=== PATIENT | male | born 1995 | race Caucasian/White ===

== ENCOUNTER 2018-05-08 20:48 | Emergency (ER) | payer OTHER ==
[2018-05-08 21:45] VITALS: BP 127/67
[2018-05-09] MEDS ORDERED: TETRACAINE HCL 0.5% OPH SOLN 4 ML OS ONE (00:25)
[2018-05-09] MEDS ORDERED: TETRACAINE HCL 0.5% OPH SOLN 4 ML ONE (00:27)
[2018-05-09] MEDS ORDERED: ERYTHROMYCIN 0.5% OPH OINTMENT 3.5 GM (ER DISP) OS PRN (00:39)
[2018-05-09] MEDS ORDERED: HYDROCODONE/ACETAMINOPHEN 5-325 MG (6 TAB/ER DISP) PO PRN (00:40)
--- NOTE | 2018-05-09 00:44 | ER Document Report ---
Addendum entered and electronically signed by ROSALIE CAMP PA-C 05/09/18 00:50: Discharge - Discharge Clinical Impression: Foreign body in cornea, left eye, initial encounter, Corneal rust ring of left eye Condition: Good Disposition: HOME, SELF-CARE Instructions: Corneal Foreign Body with Rust ([facility]) Additional Instructions: You must call the optical technician office first thing in the morning. Be sure to let the person who answers the phone no that you were seen in the emergency department and you are referred for further treatment. Use the medication given to you in the department tonight as directed. You must have the foreign body and the rest ring removed so that she did not get any further injury to your eye Referrals: ERIC SNIDER DO [ACTIVE STAFF] - 05/09/18 Original Note: ED General - General Chief Complaint: Eye Pain Stated Complaint: LEFT EYE IRRITATION Time Seen by Provider: 05/09/18 00:13 Mode of Arrival: Ambulatory Information source: Patient TRAVEL OUTSIDE OF THE [place] IN LAST 30 DAYS: No - HPI Patient complains to provider of: Painful left eye Onset: Other - Last day and a half Onset/Duration: Sudden Quality of pain: Burning, Stabbing Severity: Severe Pain Level: 5 Associated symptoms: None Exacerbated by: Denies Relieved by: Other - KEEPING EYE CLOSED Similar symptoms previously: No Recently seen / treated by doctor: No Notes: Patient is a 22-year-old male presenting to the ED tonight with painful left eye. 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 He distinctly remembers something falling from above into his eye. He has since developed worsened pain in the left eye. He is still seeing fairly well out of the eye but is having a lot of redness and tearing. He does not wear contacts - Related Data Allergies/Adverse Reactions: No Known Allergies Allergy (Unverified 05/08/18 20:49) Past Medical History - General Information source: Patient - Social History Smoking Status: Never Smoker Chew tobacco use (# tins/day): No Frequency of alcohol use: None Drug Abuse: None Family History: Reviewed & Not Pertinent Patient has suicidal ideation: No Patient has homicidal ideation: No Renal/ Medical History: Denies: Hx Peritoneal Dialysis Review of Systems - Review of Systems Notes: Constitutional: No fevers. No chills. EENT: Left eye pain, redness, tearing Cardiovascular: No chest pain. No palpitations. Respiratory: No cough. No shortness of breath. No respiratory distress. Gastrointestinal: No abdominal pain. No nausea, vomiting, or diarrhea. Genitourinary: Atraumatic. No lesions. No pain. No discharge. Musculoskeletal: Atraumatic. No swelling. No deformities. Skin: No rash or lesions. Lymphatic: No swollen lymph nodes. Neurologic: No headache. No syncope. Psychiatric: No suicidal or homicidal ideation. Physical Exam - Vital signs Vitals: Temp Pulse Resp BP Pulse Ox 97.6 F 62 16 127/67 H 100 05/08/18 21:43 05/08/18 21:43 05/08/18 21:43 05/08/18 21:43 05/08/18 21:43 - Notes Notes: General: Well-developed, well-nourished. In no acute distress. Non-toxic appearing. Cardiac: Well-perfused. Regular rate and rhythm. No murmurs, rubs, or gallops. Pulmonary: No respiratory distress. No cyanosis. Bilateral lung fiels are clear to auscultation. Abdominal: Non-distended. Non-rigid. Bowels sounds are present in all four quadrants. No guarding or rebound. HEENT: Head is atraumatic. Left eye conjunctiva injected 2+. PERRL, EOMI, no periorbital swelling or tenderness. Fluorescein staining reveals single metallic punctate object just lateral to the pupil with a rust ring. There is no other retained foreign bodies. There is no ulcerations or abrasions. Neck: Supple. No adenopathy. No meningismus. Dermatologic: Warm with good turgor. No rash. Atraumatic. Chest: Atraumatic. No chest wall tenderness to palpation. Musculoskeletal: Moves all extremities well. No range of motion deficits. no muscular or joint tenderness. No paraspinal muscle tenderness. no midline spinal tenderness or step-off. Genitourinary: Examination deferred Neurologic: No gross neurologic deficits. Psychiatric: Normal mood. - HEENT Visual acuity- Right eye: 20/30 Visual acuity- Left eye: 20/40 Visual acuity- Both eyes: 20/40 Corrective lenses worn: Yes Course - Re-evaluation Re-evalutation: 05/09/18 00:45 We will go ahead and give him some erythromycin ophthalmic ointment tonight to apply 2-3 times a day. Also sending him home with a [place] pain pack to use as directed. I will have him call the optical technician first thing in the morning to get in to have this foreign metal and rust ring removed. - Vital Signs Vital signs: Temp Pulse Resp BP Pulse Ox 97.6 F 62 16 127/67 H 100 05/08/18 21:43 05/08/18 21:43 05/08/18 21:43 05/08/18 21:43 05/08/18 21:43 Discharge - Discharge Clinical Impression: Foreign body in cornea, left eye, initial encounter, Corneal rust ring of left eye Condition: Good Disposition: HOME, SELF-CARE Instructions: Corneal Foreign Body with Rust ([facility]) Additional Instructions: You must call the optical technician office first thing in the morning. Be sure to let the person who answers the phone no that you were seen in the emergency department and you are referred for further treatment. Use the medication given to you in the department tonight as directed. You must have the foreign body and the rest ring removed so that she did not get any further injury to your eye
== END 2018-05-09 01:25 | disposition home or self-care (01) ==
LOC: ER 20:48
DX: T15.02XA Foreign body in cornea, left eye, initial encounter (principal); H57.12 Ocular pain, left eye; X58.XXXA Exposure to other specified factors, initial encounter
CPT/HCPCS: 99283